=== PATIENT | male | born 1955 | race Caucasian/White ===

== ENCOUNTER → 2016-11-20 | Outpatient (CLI) | payer OTHER ==
[~2016-11-20] MED LIST: LISINOPRIL10 MG PO; LITE COAT ASPI325 M1 PO; NEXIUM40 MG PO; SIMVASTATIN10 MG; SIMVASTATIN20 MG PO
== END | disposition home or self-care (01) ==
DX: M17.12 Unilateral primary osteoarthritis, left knee (principal); M25.562 Pain in left knee; M25.662 Stiffness of left knee, not elsewhere classified; R26.2 Difficulty in walking, not elsewhere classified; M62.89 Other specified disorders of muscle
CPT/HCPCS: 97110 GP; 97150 GO; 97161 GP; 97165 GO

== ENCOUNTER 2016-11-22 11:32 | Observation (INO) | payer OTHER, BC ==
[~2016-11-22] VITALS: Ht 177.8 cm; Wt 121.8 kg
[~2016-11-22 11:32] MED LIST changes: -LISINOPRIL10 MG PO; -LITE COAT ASPI325 M1 PO; -SIMVASTATIN20 MG PO
[2016-11-22 13:31] LABS: HEMATOCRIT 43.3 % (38.0-50.0); MCH 30.6 PG (29.0-34.0); MCHC 34.2 G/DL (30.0-36.0); MCV 89.5 FL (86-99); MEAN PLAT.VOLUME 11.1 uM^3 (9.0-12.4); PLATELET COUNT 158 K/uL (156-360); RBC DIS.WIDTH-CV 12.9 % (11.8-14.6); RBC DIS.WIDTH-SD 42.3 % (39-53); RED BLOOD COUNT 4.84 M/uL (4.00-5.50); WHITE BLOOD COUNT 5.3 K/uL (4.1-10.2)
[2016-11-22 13:34] LABS: CHLORIDE 104 mEq/L (99-109); POTASSIUM 4.4 mEq/L (3.7-5.4); SODIUM 138 mEq/L (136-147)
[2016-11-22 13:35] LABS: GLUCOSE 104 mg/dL (70-99)
[2016-11-22 13:37] LABS: ANION GAP 11 MEQ/L (2-14)
[2016-11-22 13:39] LABS: GFR ESTIMATE (CALCULATED) > 59 mL/min/
[2016-11-22 13:40] LABS: UREA NITROGEN (BUN) 13 mg/dL (9-23)
[2016-11-22 13:47] LABS: TROP-I INTERPRETATION NEGATIVE; TROPONIN-I < 0.01 ng/mL (0.0-0.30)
[2016-11-22] MEDS ORDERED: LITE COAT ASPI325 M1 PO (16:29)
[2016-11-22] MEDS ORDERED: LISINOPRIL10 MG PO (16:29)
[2016-11-22] MEDS ORDERED: SIMVASTATIN20 MG PO (16:29)
[2016-11-22 21:11] LABS: TROP-I INTERPRETATION NEGATIVE; TROPONIN-I < 0.01 ng/mL (0.0-0.30)
[2016-11-23 00:06] VITALS: BP 121/69
[2016-11-23 02:03] LABS: TROP-I INTERPRETATION NEGATIVE; TROPONIN-I < 0.01 ng/mL (0.0-0.30)
[2016-11-23 05:02] VITALS: BP 117/63
[2016-11-23 07:03] LABS: HEMATOCRIT 41.1 % (38.0-50.0); MCH 29.4 PG (29.0-34.0); MCHC 32.6 G/DL (30.0-36.0); MCV 90.1 FL (86-99); MEAN PLAT.VOLUME 10.8 uM^3 (9.0-12.4); PLATELET COUNT 141 K/uL (156-360); RBC DIS.WIDTH-CV 13.1 % (11.8-14.6); RBC DIS.WIDTH-SD 42.9 % (39-53); RED BLOOD COUNT 4.56 M/uL (4.00-5.50); WHITE BLOOD COUNT 5.7 K/uL (4.1-10.2)
[2016-11-23 07:28] LABS: ALKALINE PHOSPHATASE 49 IU/L (3-129); ANION GAP 9 MEQ/L (2-14); CHLORIDE 104 MEQ/L (99-109); GFR ESTIMATE (CALCULATED) > 59 mL/min/; GLUCOSE 98 mg/dL (70-99); SAMPLE HEMOLYSIS CHECK 0; SAMPLE ICTERIC CHECK 0; SAMPLE LIPEMIA CHECK 0; SODIUM 139 MEQ/L (136-147); TOTAL BILIRUBIN 0.7 MG/DL (0.0-1.0); UREA NITROGEN (BUN) 13 mg/dL (9-23)
[2016-11-23 10:08] VITALS: BP 124/77
[2016-11-23 12:41] VITALS: BP 123/74
== END 2016-11-23 14:10 | disposition home or self-care (01) ==
LOC: EME 11:32 → EDOF 17:24 → 5WEST 17:24
PROVIDERS: Internal Medicine
DX: R00.2 Palpitations (principal); R07.89 Other chest pain; R42 Dizziness and giddiness; R11.0 Nausea; K22.70 Barrett's esophagus without dysplasia; K21.9 Gastro-esophageal reflux disease without esophagitis; E11.9 Type 2 diabetes mellitus without complications; I10 Essential (primary) hypertension; E78.00 Pure hypercholesterolemia, unspecified; E78.5 Hyperlipidemia, unspecified; Z87.891 Personal history of nicotine dependence; E66.9 Obesity, unspecified
CPT/HCPCS: 70450; 70551; 71020; 80048; 80053; 84443; 84484; 85027; 93005; 93880; 99281; 99285; G0378; J1644; J7030

== ENCOUNTER 2017-01-01 06:35 | Inpatient (IN) | payer OTHER, BC ==
[~2017-01-01] VITALS: Ht 177.8 cm; Wt 125.4 kg
[~2017-01-01 06:35] MED LIST changes: +IRON325 M1 PO; +LISINOPRIL10 MG PO; +LITE COAT ASPI325 M1 PO; +SIMVASTATIN20 MG PO
[2017-01-01 07:13] VITALS: BP 132/79
[2017-01-01 12:54] VITALS: BP 105/62
[2017-01-01 13:18] LABS: MCH 28.8 PG (29.0-34.0); MCV 89.9 FL (86-99); MEAN PLAT.VOLUME 10.9 uM^3 (9.0-12.4); PLATELET COUNT 150 K/uL (156-360); RBC DIS.WIDTH-CV 12.9 % (11.8-14.6); RBC DIS.WIDTH-SD 42.1 % (39-53); RED BLOOD COUNT 4.45 M/uL (4.00-5.50); WHITE BLOOD COUNT 6.8 K/uL (4.1-10.2)
[2017-01-01 15:26] VITALS: BP 123/72
[2017-01-01 17:23] LABS: POINT-OF-CARE METER ID UU13113712
[2017-01-01 20:12] VITALS: BP 135/81
[2017-01-01 21:37] VITALS: BP 132/80
[2017-01-01 21:59] LABS: POINT-OF-CARE METER ID UU13113712
[2017-01-02 00:15] VITALS: BP 145/79
[2017-01-02 04:30] VITALS: BP 145/90
[2017-01-02 06:06] LABS: HEMATOCRIT 38.2 % (38.0-50.0); MCV 89.3 FL (86-99)
[2017-01-02 06:26] LABS: ANION GAP 7 MEQ/L (2-14); CHLORIDE 97 MEQ/L (99-109); GFR ESTIMATE (CALCULATED) > 59 mL/min/; GLUCOSE 156 mg/dL (70-99); POTASSIUM 4.1 MEQ/L (3.7-5.4); SAMPLE HEMOLYSIS CHECK 0; SAMPLE ICTERIC CHECK 0; SAMPLE LIPEMIA CHECK 0; SODIUM 130 MEQ/L (136-147); UREA NITROGEN (BUN) 13 mg/dL (9-23)
[2017-01-02 08:00] VITALS: BP 145/74
[2017-01-02 11:19] LABS: POINT-OF-CARE METER ID UU13113712
[2017-01-02 12:13] VITALS: BP 134/77
[2017-01-02 15:43] VITALS: BP 131/65
[2017-01-02 16:37] LABS: POINT-OF-CARE METER ID UU13113712
[2017-01-02 20:20] VITALS: BP 118/64
[2017-01-02 22:25] LABS: POINT-OF-CARE METER ID UU13113712
[2017-01-03 00:10] VITALS: BP 120/65
[2017-01-03 04:29] VITALS: BP 114/64
[2017-01-03 04:58] LABS: HEMATOCRIT 32.9 % (38.0-50.0); MCV 89.2 FL (86-99)
[2017-01-03 07:30] LABS: POINT-OF-CARE METER ID UU13113712
[2017-01-03 08:34] VITALS: BP 107/66
[2017-01-03] MEDS ORDERED: SENNA PLUS TAB1 EACH PO (08:59)
[2017-01-03] MEDS ORDERED: PROMETHAZINE HC25 M1 PO (09:00)
[2017-01-03] MEDS ORDERED: HYDROCODON-ACE1 EAC7 PO (09:00)
[2017-01-03] MEDS ORDERED: LOVENOX40 MG/0.4 SC (09:00)
[2017-01-03 11:37] LABS: POINT-OF-CARE METER ID UU13113712
[2017-01-03 12:09] VITALS: BP 115/66
[2017-01-03 13:51] VITALS: BP 122/67
== END 2017-01-03 13:53 | DRG 470 ==
LOC: 2SOUTH 06:35 → 3WEST 12:54 → 2SOUTH 13:17 → 3WEST 01-03 13:53
PROVIDERS: Orthopaedic Surgery
PROC: 0SRD0J9 Replacement of Left Knee Joint with Synthetic Substitute, Cemented, Open Approach (ICD-10-PCS; principal; 2017-01-01)
DX: M17.12 Unilateral primary osteoarthritis, left knee (principal); E87.1 Hypo-osmolality and hyponatremia; I10 Essential (primary) hypertension; E78.00 Pure hypercholesterolemia, unspecified; K21.9 Gastro-esophageal reflux disease without esophagitis; Z79.82 Long term (current) use of aspirin; Z87.891 Personal history of nicotine dependence
CPT/HCPCS: 73560; 80048; 82948; 84295; 85014; 85018; 85027; J0131; J0690; J1170; J1650; J1815; J2250; J2405; J7050